=== PATIENT | female | born 1990 | race Caucasian/White ===

== ENCOUNTER 2016-08-13 11:44 | Outpatient (RCR) | payer OTHER ==
[~2016-08-13 11:44] MED LIST: CYCL10TA PO; PERC5TAB6 PO
== END 2016-08-17 ==
LOC: M PT 11:44
PROVIDERS: ATTEND Orthopaedic Surgery
DX: Z51.89 Encounter for other specified aftercare (principal); Z47.89 Encounter for other orthopedic aftercare; Z98.1 Arthrodesis status

== ENCOUNTER 2016-08-19 08:15 | Outpatient (RCR) | payer OTHER | END 2016-09-14 | LOC: M PT 08:15 | PROVIDERS: ATTEND Orthopaedic Surgery | DX: Z51.89 Encounter for other specified aftercare (principal); Z47.89 Encounter for other orthopedic aftercare; Z98.1 Arthrodesis status ==